=== PATIENT | female | born 1950 | race Caucasian/White ===

== ENCOUNTER 2019-09-16 13:56 | Observation (INO) | payer MEDICARE, OTHER ==
[2019-09-16] MEDS ORDERED: Sodium Chloride 0.9% 10 ML Syringe FLUSH PRN (14:19)
[2019-09-16] MEDS ORDERED: Sodium Chloride 0.9% 2.5 ML Syringe FLUSH PRN (14:19)
[2019-09-16] MEDS ORDERED: Sodium Chloride 0.9% 1,000 ML IV ONE (14:19)
--- NOTE | 2019-09-16 14:25 | EDM.PDOC ---
ED HPI GENERAL MEDICAL PROBLEM - General Chief Complaint: Cardiovascular Problem Stated Complaint: LOW BP Time Seen by Provider: 09/16/19 14:02 Source of Information: Reports: Patient History Limitations: Reports: No Limitations - History of Present Illness INITIAL COMMENTS - FREE TEXT/NARRATIVE: 69-year-old female with history of SC x2, stents, COPD, peripheral vascular disease, diabetes presents with hypotension and nausea. She was out in her backyard raking leaves and cleaning for about 1.5 hours before she felt nauseous. She then went inside and checked her blood pressure, she got multiple readings where her blood pressure was in the low 90s over 50s, the lowest one being 61/40. She denied chest pain, vomiting, diarrhea, abdominal pain, rectal bleeding, headache, focal numbness or weakness. She is currently not nauseous. She does admit to feeling tired and short of breath. She currently takes carvedilol 6.25 mg. ROS: A 10-point review of systems, other than pertinent positives and negatives as stated per HPI, is otherwise negative PHYSICAL EXAM General: AOx4, GCS = 15, No distress HEENT: dry mucous membrane Neck: supple, no meningismus, no Kernig or Brudzinski Cardiac: S1S2 RRR, +1 pedal edema Respiratory: CTAB, no crackles or rales, no wheezing Abdomen: Soft, nontender, no rebound or guarding, nondistended, no pulsatile mass. Back: nontender Musculoskeletal: NVI distally, no deformity Neuro: No focal deficits. MEDICAL DECISION MAKING: I reviewed the patients past medical records, lab and radiographic findings. I discussed the case with family members. My differential diagnosis included: Orthostatic hypotension, atypical chest pain. Patient's EKG today demonstrated T wave inversions in V1 to V3, I compared it to an old EKG, these are new changes from 2013. She did not demonstrate hypotension in the ER, she was given 1 L IV fluids. Her nausea was resolved in the ER. Patient did demonstrate acute kidney injury with creatinine = 2.0, BUN = 36, there are no old labs for comparison. Patient will need to be admitted to the hospital for telemetry monitoring and cardiac work-up and continue IV hydration. - Related Data Allergies Allergy/AdvReac Type Severity Reaction Status Date / Time egg Allergy Vomiting Verified 09/16/19 14:08 Iodinated Contrast Media Allergy Hives Verified 09/16/19 14:08 [Iodinated Contrast Media - IV Dye] morphine Allergy Bradycardia Verified 09/16/19 14:08 Sulfa (Sulfonamide Allergy Hives Verified 09/16/19 14:08 Antibiotics) Home Meds: Home Meds Armodafinil [Nuvigil] 250 mg PO DAILY 02/22/14 [History] Aspirin [Children's Aspirin] 81 mg PO DAILY 02/22/14 [History] Budesonide/Formoterol [Symbicort 80-4.5 MCG] 1 inhalation IH BID 02/22/14 [ History] Cholecalciferol (Vitamin D3) [Vitamin D3] 5,000 units PO ASDIRECTED 02/22/14 [ History] Clopidogrel Bisulfate [Clopidogrel] 75 mg PO DAILY 02/22/14 [History] Cyanocobalamin (Vitamin B12) [Vitamin B12] 1 tab PO DAILY 02/22/14 [History] Pramipexole Di-HCl [Pramipexole Dihydrochloride] 0.5 mg PO DAILY 02/22/14 [ History] Rosuvastatin [Crestor] 40 mg PO DAILY 02/22/14 [History] Sertraline HCl [Zoloft] 100 mg PO DAILY 02/22/14 [History] carvediloL [Carvedilol] 6.25 mg PO BID 02/22/14 [History] metFORMIN HCl [Metformin HCl] 750 mg PO BEDTIME 02/22/14 [History] ramipriL [Altace] 5 mg PO BID 02/22/14 [History] traMADol HCl [Ultram] 2 tab PO ASDIRECTED PRN 02/22/14 [History] Dulaglutide [Trulicity] 1.5 mg SQ WEEKLY 09/16/19 [History] Famotidine 40 mg PO DAILY 09/16/19 [History] ED ROS GENERAL - Review of Systems Review Of Systems: See Below (see dictation) ED EXAM, GENERAL - Physical Exam Exam: See Below (see dictation) EKG INTERPRETATION EKG Interpretation Comments: 54 Bpm, sinus bradycardia, normal QRS interval, no STEMI. TWi on V1-V3. EKG and rhythm strip interpreted by me at 1401 (new compared to 01/2014) Course - Vital Signs Last Recorded V/S: Last Vital Signs Temp 96 F L 09/16/19 14:01 Pulse 60 09/16/19 15:30 Resp 18 09/16/19 15:30 BP 104/51 L 09/16/19 15:30 Pulse Ox 94 L 09/16/19 15:30 Orthostatic Blood Pressure [ 108/62 Standing] Orthostatic Blood Pressure [ 114/52 Sitting] Orthostatic Blood Pressure [ 119/42 Supine] - Orders/Labs/Meds Orders: Active Orders 24 hr Category Date Time Status Cardiac Monitoring [RC] . DIRECTED Care 09/16/19 14:19 Active EKG Documentation Completion [RC] STAT Care 09/16/19 14:19 Active Orthostatic Vital Signs [RC] ASDIRECTED Care 09/16/19 14:48 Active Sodium Chloride 0.9% [Saline Flush] Med 09/16/19 14:19 Active 10 ml FLUSH ASDIRECTED PRN Sodium Chloride 0.9% [Saline Flush] Med 09/16/19 14:19 Active 2.5 ml FLUSH ASDIRECTED PRN Saline Lock Insert [OM.PC] Stat Oth 09/16/19 14:19 Ordered Medication Orders Sodium Chloride (Saline Flush) 10 ml FLUSH ASDIRECTED PRN PRN Reason: Keep Vein Open Last Admin: 09/16/19 14:52 Dose: 10 ml Sodium Chloride (Saline Flush) 2.5 ml FLUSH ASDIRECTED PRN PRN Reason: Keep Vein Open Last Admin: 09/16/19 14:53 Dose: 2.5 ml Labs: Laboratory Tests 09/16/19 09/16/19 09/16/19 Range/Units 14:35 14:35 14:35 WBC 4.01 (4.0-11.0) K/uL RBC 3.86 L (4.30-5.90) M/uL Hgb 11.3 L (12.0-16.0) g/dL Hct 36.2 (36.0-46.0) % MCV 93.8 (80.0-98.0) fL MCH 29.3 (27.0-32.0) pg MCHC 31.2 (31.0-37.0) g/dL RDW Std Deviation 43.7 (28.0-62.0) fl RDW Coeff of [place]qu[place] 13 (11.0-15.0) % Plt Count 182 (150-400) K/uL MPV 9.90 (7.40-12.00) fL Neut % (Auto) 57.4 (48.0-80.0) % Lymph % (Auto) 28.9 (16.0-40.0) % Carbon % (Auto) 8.5 (0.0-15.0) % Eos % (Auto) 5.0 (0.0-7.0) % Baso % (Auto) 0.2 (0.0-1.5) % Neut # (Auto) 2.3 (1.4-5.7) K/uL Lymph # (Auto) 1.2 (0.6-2.4) K/uL Carbon # (Auto) 0.3 (0.0-0.8) K/uL Eos # (Auto) 0.2 (0.0-0.7) K/uL Baso # (Auto) 0.0 (0.0-0.1) K/uL Nucleated RBC % 0.0 /100WBC Nucleated RBCs # 0 K/uL INR 1.01 Sodium 141 (136-145) mmol/L Potassium 4.7 (3.5-5.1) mmol/L Chloride 105 (98-107) mmol/L Carbon Dioxide 28.9 (21.0-32.0) mmol/L BUN 36 H (7.0-18.0) mg/dL Creatinine 2.0 H (0.6-1.0) mg/dL Est Cr Clr Drug Dosing 22.92 mL/min Estimated GFR (MDRD) 24.7 ml/min Glucose 95 (74-106) mg/dL Calcium 8.8 (8.5-10.1) mg/dL Total Bilirubin 0.3 (0.2-1.0) mg/dL AST 28 (15-37) IU/L ALT 23 (14-63) IU/L Alkaline Phosphatase 73 (46-116) U/L Troponin I < 0.050 (0.000-0.056) ng/mL Total Protein 6.9 (6.4-8.2) g/dL Albumin 4.0 (3.4-5.0) g/dL Globulin 2.9 (2.6-4.0) g/dL Albumin/Globulin Ratio 1.4 (0.9-1.6) Meds: Medications Generic Name Dose Route Start Last Admin Trade Name Freq PRN Reason Stop Dose Admin Sodium Chloride 10 ml 09/16/19 14:19 09/16/19 14:52 Saline Flush FLUSH 10 ml ASDIRECTED PRN Administration Keep Vein Open Sodium Chloride 2.5 ml 09/16/19 14:19 09/16/19 14:53 Saline Flush FLUSH 2.5 ml ASDIRECTED PRN Administration Keep Vein Open Discontinued Medications Generic Name Dose Route Start Last Admin Trade Name Freq PRN Reason Stop Dose Admin Sodium Chloride 1,000 mls @ 999 mls/hr 09/16/19 14:19 09/16/19 14:50 Normal Saline IV 09/16/19 15:19 999 mls/hr BOLUS ONE Administration - Re-Assessments/Exams Free Text/Narrative Re-Assessment/Exam: 09/16/19 16:[address] ARELLANO, who agrees to admit patient to Obs/tele. HIs documentation supersedes all other documentation on this patient with regard to any conflicts or discrepancies from this point forward. Any emergency conditions have been treated to the ability of the ED prior to admission. Departure - Departure Time of Disposition: 16:19 Disposition: Refer to Observation Condition: Good Clinical Impression: Bradycardia, Acute renal failure (ARF), Transient hypotension Sepsis Event Note - Evaluation Sepsis Screening Result: No Definite Risk - Focused Exam Vital Signs: Vital Signs Temp Pulse Resp BP Pulse Ox 09/16/19 15:30 60 18 104/51 L 94 L 09/16/19 15:02 58 L 16 118/58 L 95 09/16/19 14:01 96 F L 61 17 120/76 96 Date Exam was Performed: 09/16/19 Time Exam was Performed: 16:18 - My Orders Last 24 Hours: My Active Orders 09/16/19 14:19 Cardiac Monitoring [RC] . DIRECTED EKG Documentation Completion [RC] STAT Sodium Chloride 0.9% [Saline Flush] 10 ml FLUSH ASDIRECTED PRN Sodium Chloride 0.9% [Saline Flush] 2.5 ml FLUSH ASDIRECTED PRN Saline Lock Insert [OM.PC] Stat 09/16/19 14:48 Orthostatic Vital Signs [RC] ASDIRECTED - Assessment/Plan Last 24 Hours: My Active Orders 09/16/19 14:19 Cardiac Monitoring [RC] . DIRECTED EKG Documentation Completion [RC] STAT Sodium Chloride 0.9% [Saline Flush] 10 ml FLUSH ASDIRECTED PRN Sodium Chloride 0.9% [Saline Flush] 2.5 ml FLUSH ASDIRECTED PRN Saline Lock Insert [OM.PC] Stat 09/16/19 14:48 Orthostatic Vital Signs [RC] ASDIRECTED
--- NOTE | 2019-09-16 15:09 | CR ---
INDICATION: Hypotension TECHNIQUE: Single view chest. FINDINGS: The lungs are clear. The heart, mediastinum and pulmonary vessels are of normal size. There is no evidence of pleural disease. IMPRESSION: Negative chest. Dictated by Sherly Sherman MD @ Sep 16 2019 3:06PM Signed by Dr. Sherly Sherman @ Sep 16 2019 3:07PM
[2019-09-16 15:10] LABS: BLOOD UREA NITROGEN,BUN 36 mg/dL (7.0-18.0); CARBON DIOXIDE,CO2 28.9 mmol/L (21.0-32.0); CHLORIDE,CL 105 mmol/L (98-107); GLUCOSE RANDOM 95 mg/dL (74-106); POTASSIUM,K 4.7 mmol/L (3.5-5.1); SODIUM,NA 141 mmol/L (136-145)
[2019-09-16] MEDS ORDERED: traMADol 50 MG Tab PO PRN ×2 (19:20→19:26)
--- NOTE | 2019-09-16 19:39 | PCM.HP.2 ---
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 Patient reports she was working in her yard today when she felt off. She reported feeling nauseated. She took her blood pressure and noted it to be 60s-90s systolic on her BP machine. Patient denies any chest pain, shortness of breath or lightheadedness. She moved up here for the summer from [place] two weeks ago. In the ED she was noted to have BP in the 100-120 systolic. Lab work was significant for a creatinine of 2.0. PAtient reports she does have frequent lab checks and she has never been told she has kidney disease. - Related Data Allergies/Adverse Reactions: Allergies Allergy/AdvReac Type Severity Reaction Status Date / Time egg Allergy Vomiting Verified 09/16/19 17:11 Iodinated Contrast Media Allergy Hives Verified 09/16/19 17:11 [Iodinated Contrast Media - IV Dye] morphine Allergy Bradycardia Verified 09/16/19 17:11 Sulfa (Sulfonamide Allergy Hives Verified 09/16/19 17:11 Antibiotics) Home Medications: Home Meds Armodafinil [Nuvigil] 250 mg PO DAILY 02/22/14 [History] Aspirin [Children's Aspirin] 81 mg PO BEDTIME 02/22/14 [History] Budesonide/Formoterol [Symbicort 80-4.5 MCG] 1 inhalation IH BID 02/22/14 [ History] Cholecalciferol (Vitamin D3) [Vitamin D3] 5,000 units PO ASDIRECTED 02/22/14 [ History] Clopidogrel Bisulfate [Clopidogrel] 75 mg PO DAILY 02/22/14 [History] Cyanocobalamin (Vitamin B12) [Vitamin B12] 1 tab PO BEDTIME 02/22/14 [History] Pramipexole Di-HCl [Pramipexole Dihydrochloride] 0.5 mg PO BEDTIME 02/22/14 [ History] Rosuvastatin [Crestor] 40 mg PO BEDTIME 02/22/14 [History] Sertraline HCl [Zoloft] 100 mg PO BEDTIME 02/22/14 [History] carvediloL [Carvedilol] 6.25 mg PO BID 02/22/14 [History] metFORMIN HCl [Metformin HCl] 750 mg PO BEDTIME 02/22/14 [History] ramipriL [Altace] 5 mg PO BID 02/22/14 [History] traMADol HCl [Ultram] 2 tab PO ASDIRECTED PRN 02/22/14 [History] Dulaglutide [Trulicity] 1.5 mg SQ WEEKLY 09/16/19 [History] Famotidine 40 mg PO DAILY 09/16/19 [History] Past Medical History Cardiovascular History: Reports: High Cholesterol, Hypertension, DC Respiratory History: Reports: COPD, Sleep Apnea Gastrointestinal History: Reports: [employer] History: Reports: Musculoskeletal History: Reports: Arthritis Neurological History: Reports: None Psychiatric History: Reports: Anxiety, Depression Endocrine/Metabolic History: Reports: Other (See Below) Other Endocrine/Metabolic History: borderline diabetic Hematologic History: Reports: None Immunologic History: Reports: None Oncologic (Cancer) History: Reports: None Dermatologic History: Reports: None - Infectious Disease History Infectious Disease History: Reports: None - Past Surgical History Head Surgeries/Procedures: Reports: None HEENT Surgical History: Reports: Naso-Sinus Surgery Cardiovascular Surgical History: Reports: Other (See Below) Other Cardiovascular Surgeries/Procedures: stents GI Surgical History: Reports: Appendectomy, Cholecystectomy, Colonoscopy, Hernia , Abdominal Female Surgical History: Reports: Breast Reduction, Tubal Ligation Social & Family History - Tobacco Use Smoking Status *Q: Former Smoker Used Tobacco, but Quit: No Month/Year Tobacco Last Used: 2003 Second Hand Smoke Exposure: No - Caffeine Use Caffeine Use: Reports: Coffee - Recreational Drug Use Recreational Drug Use: No H&P Review of Systems - Review of Systems: Review Of Systems: Comprehensive ROS is negative, except as noted in HPI. Exam - Exam Exam: See Below - Vital Signs Vital Signs: Last Vital Signs Temp 36.2 C 09/16/19 17:10 Pulse 95 09/16/19 17:10 Resp 17 09/16/19 17:10 BP 124/58 L 09/16/19 17:10 Pulse Ox 95 09/16/19 17:10 Orthostatic Blood Pressure [ 108/62 Standing] Orthostatic Blood Pressure [ 114/52 Sitting] Orthostatic Blood Pressure [ 119/42 Supine] Weight: 82.3 kg - Exam General: Alert, Oriented HEENT: Mucosa Moist & [place] Lungs: Clear to Auscultation, Normal Respiratory Effort Cardiovascular: Regular Rate, Regular Rhythm GI/Abdominal Exam: Normal Bowel Sounds, Soft, Non-Tender Extremities: Non-Tender, No Pedal Edema Skin: Warm, Dry, Intact - Patient Data Lab Results Last 24 hrs: Laboratory Results - last 24 hr 09/16/19 09/16/19 09/16/19 Range/Units 14:35 14:35 14:35 WBC 4.01 (4.0-11.0) K/uL RBC 3.86 L (4.30-5.90) M/uL Hgb 11.3 L (12.0-16.0) g/dL Hct 36.2 (36.0-46.0) % MCV 93.8 (80.0-98.0) fL MCH 29.3 (27.0-32.0) pg MCHC 31.2 (31.0-37.0) g/dL RDW Std Deviation 43.7 (28.0-62.0) fl RDW Coeff of Orquidea 13 (11.0-15.0) % Plt Count 182 (150-400) K/uL MPV 9.90 (7.40-12.00) fL Neut % (Auto) 57.4 (48.0-80.0) % Lymph % (Auto) 28.9 (16.0-40.0) % [place] % (Auto) 8.5 (0.0-15.0) % Eos % (Auto) 5.0 (0.0-7.0) % Baso % (Auto) 0.2 (0.0-1.5) % Neut # (Auto) 2.3 (1.4-5.7) K/uL Lymph # (Auto) 1.2 (0.6-2.4) K/uL [place] # (Auto) 0.3 (0.0-0.8) K/uL Eos # (Auto) 0.2 (0.0-0.7) K/uL Baso # (Auto) 0.0 (0.0-0.1) K/uL Nucleated RBC % 0.0 /100WBC Nucleated RBCs # 0 K/uL INR 1.01 Sodium 141 (136-145) mmol/L Potassium 4.7 (3.5-5.1) mmol/L Chloride 105 (98-107) mmol/L Carbon Dioxide 28.9 (21.0-32.0) mmol/L BUN 36 H (7.0-18.0) mg/dL Creatinine 2.0 H (0.6-1.0) mg/dL Est Cr Clr Drug Dosing 22.92 mL/min Estimated GFR (MDRD) 24.7 ml/min Glucose 95 (74-106) mg/dL Calcium 8.8 (8.5-10.1) mg/dL Total Bilirubin 0.3 (0.2-1.0) mg/dL AST 28 (15-37) IU/L ALT 23 (14-63) IU/L Alkaline Phosphatase 73 (46-116) U/L Troponin I < 0.050 (0.000-0.056) ng/mL Total Protein 6.9 (6.4-8.2) g/dL Albumin 4.0 (3.4-5.0) g/dL Globulin 2.9 (2.6-4.0) g/dL Albumin/Globulin Ratio 1.4 (0.9-1.6) Result Diagrams: 09/16/19 14:35 09/16/19 14:35 Sepsis Event Note - Evaluation Sepsis Screening Result: No Definite Risk - Focused Exam Vital Signs: Vital Signs Temp Pulse Resp BP Pulse Ox 09/16/19 17:10 36.2 C 95 17 124/58 L 95 09/16/19 15:30 60 18 104/51 L 94 L 09/16/19 15:02 58 L 16 118/58 L 95 09/16/19 14:01 35.5 C L 61 17 120/76 96 Date Exam was Performed: 09/16/19 Time Exam was Performed: 19:34 Problem List Initiated/Reviewed/Updated: Yes Orders Last 24hrs: Active Orders 24 hr Category Date Time Status Admission Status [Patient Status] [ADT] Stat ADT 09/16/19 16:23 Active Antiembolic Devices [RC] PER UNIT ROUTINE Care 09/16/19 16:54 Active Blood Glucose Check, Bedside [RC] TIDAC Care 09/17/19 06:00 Active Communication Order [RC] ROUTINE Care 09/16/19 19:33 Ordered Oxygen Therapy [RC] PRN Care 09/16/19 19:32 Ordered Telemetry Monitoring [Cardiac Monitoring] [RC] . Care 09/16/19 16:50 Active DIRECTED Up ad [place] [RC] ASDIRECTED Care 09/16/19 19:32 Ordered VTE/DVT Education [RC] PER UNIT ROUTINE Care 09/16/19 19:32 Ordered Vital Signs [RC] Q4H Care 09/16/19 19:32 Ordered ADA Diabetic [[place] [employer] Diet] [DIET Diet 09/16/19 Dinner Active ] BASIC METABOLIC PANEL,BMP [CHEM] AM Lab 09/17/19 05:11 Ordered CBC WITH AUTO DIFF [HEME] AM Lab 09/17/19 05:11 Ordered TROPONIN I [CHEM] Routine Lab 09/16/19 19:30 Ordered TROPONIN I [CHEM] Timed Lab 09/17/19 01:30 Ordered UA W/MARIS RFLX IF INDICATED [URIN] Routine Lab 09/16/19 19:33 Ordered Armodafinil [Nuvigil] Med 09/17/19 09:00 Ordered 250 mg PO DAILY Budesonide/Formoterol [Symbicort 80-4.5 MCG] Med 09/16/19 21:00 Ordered 1 inhalation IH BID Clopidogrel [Plavix] Med 09/17/19 09:00 Ordered 75 mg PO DAILY Famotidine [Famotidine] Med 09/17/19 09:00 Ordered 40 mg PO DAILY Insulin Aspart [NovoLOG] Med 09/17/19 07:30 Active See Protocol SUBCUT TIDAC Pramipexole Med 09/16/19 21:00 Ordered 0.5 mg PO BEDTIME Rosuvastatin [Crestor] Med 09/16/19 21:00 Ordered 40 mg PO BEDTIME Sertraline [Zoloft] Med 09/16/19 21:00 Ordered 100 mg PO BEDTIME Sodium Chloride 0.9% [Saline Flush] Med 09/16/19 14:19 Active 10 ml FLUSH ASDIRECTED PRN Sodium Chloride 0.9% [Saline Flush] Med 09/16/19 14:19 Active 2.5 ml FLUSH ASDIRECTED PRN carvediloL [Coreg] Med 09/16/19 21:00 Ordered 6.25 mg PO BID Saline Lock Insert [OM.PC] Stat Oth 09/16/19 14:19 Ordered Sequential Compression Device [OM.PC] Routine Oth 09/16/19 16:54 Ordered Resuscitation Status Routine Resus Stat 09/16/19 19:32 Ordered Medication Orders Carvedilol (Coreg) 6.25 mg PO BID HECTOR Clopidogrel Bisulfate (Plavix) 75 mg PO DAILY HECTOR Insulin Aspart (Novolog) 0 unit SUBCUT TIDAC HECTOR; Protocol Non-Formulary Medication (Armodafinil [Nuvigil]) 250 mg PO DAILY HECTOR Non-Formulary Medication (Budesonide/Formoterol [Symbicort 80-4.5 Mcg]) 1 inhalation IH BID HECTOR Non-Formulary Medication (Famotidine [Famotidine]) 40 mg PO DAILY HECTOR Non-Formulary Medication (Pramipexole) 0.5 mg PO BEDTIME HECTOR Non-Formulary Medication (Rosuvastatin [Crestor]) 40 mg PO BEDTIME HECTOR Sertraline HCl (Zoloft) 100 mg PO BEDTIME HECTOR Sodium Chloride (Saline Flush) 10 ml FLUSH ASDIRECTED PRN PRN Reason: Keep Vein Open Last Admin: 09/16/19 14:52 Dose: 10 ml Sodium Chloride (Saline Flush) 2.5 ml FLUSH ASDIRECTED PRN PRN Reason: Keep Vein Open Last Admin: 09/16/19 14:53 Dose: 2.5 ml Assessment/Plan Comment:: 69 yo female admitted for cute coronary syndrome rule out and suspect acute kidney disease from dehydration. a We will hold her ramipril and tramadol for tonight. We will hydrate with IV fluids and recheck BMP in the morning. UA is pending. We will monitor her telemetry and trend cardiac enzymes. Patient will bring her BP machine in so that we can compare readings to ours.
[2019-09-16] MEDS: Carvedilol 6.25 MG Tab PO SCH (20:39)
[2019-09-16] MEDS ORDERED: Sertraline 100 MG Tab PO SCH (21:00)
[2019-09-16] MEDS ORDERED: Rosuvastatin 10 MG Tab PO SCH (21:00)
[2019-09-16] MEDS ORDERED: Pramipexole 0.25 MG Tab PO SCH (21:00)
[2019-09-16] MEDS: Sodium Chloride 0.9% 1,000 ML IV SCH (21:31)
[2019-09-17 01:54] LABS: HEMOGLOBIN A1C 5.9 % (4.5-6.2)
[2019-09-17 01:58] LABS: CARBON DIOXIDE,CO2 24.9 mmol/L (21.0-32.0); POTASSIUM,K 4.4 mmol/L (3.5-5.1)
[2019-09-17] MEDS: Sodium Chloride 0.9% 1,000 ML IV SCH (05:47)
[2019-09-17] MEDS: FORMOTEROL INH SCH ×3 (07:47→09:42)
[2019-09-17] MEDS: BUDESONIDE INH SCH ×3 (07:47→09:42)
[2019-09-17] MEDS ORDERED: cefTRIAXone 1 GM in Premix Bag 1 BAG IV SCH (08:00)
[2019-09-17] MEDS: Insulin Aspart 100 Units/ML 3 ML Pen SUBCUT SCH ×2 (08:19→13:41)
[2019-09-17] MEDS: Carvedilol 6.25 MG Tab PO SCH (08:53)
[2019-09-17] MEDS ORDERED: Famotidine 20 MG Tab PO SCH (09:00)
[2019-09-17] MEDS ORDERED: Clopidogrel 75 MG Tab PO SCH (09:00)
[2019-09-17] MEDS ORDERED: traMADol 50 MG Tab PO ONE (10:50)
[2019-09-17 12:14] VITALS: BP 132/60; PULSE 86
--- NOTE | 2019-09-17 12:24 | PCM.DCSUM1 ---
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 Patient reports she was working in her yard today when she felt off. She reported feeling nauseated. She took her blood pressure and noted it to be 60s-90s systolic on her BP machine. Patient denies any chest pain, shortness of breath or lightheadedness. She moved up here for the summer from [place] two weeks ago. In the ED she was noted to have BP in the 100-120 systolic. Lab work was significant for a creatinine of 2.0. PAtient reports she does have frequent lab checks and she has never been told she has kidney disease. Diagnosis: Stroke: No - Discharge Data Discharge Date: 09/17/19 Discharge Disposition: Home, Home Health Agency 06 Condition: Good - Referral to Home Health Date of Face to Face Encounter: 09/17/19 Reason for Homebound Status: She is unable to drive to appointments, needing assistance from family or significant other. Primary Care Physician: Dr Albright Skilled Need: Skilled need by nursing to monitor blood pressures at home and evaluate medications. - Discharge Diagnosis/Problem(s) (1) Acute renal failure (ARF) SNOMED Code(s): 53363494 ICD Code: N17.9 - ACUTE KIDNEY FAILURE, UNSPECIFIED Status: Acute (2) Transient hypotension SNOMED Code(s): 75473715241071 ICD Code: I95.9 - HYPOTENSION, UNSPECIFIED Status: Acute - Patient Summary/Data Hospital Course: Admitting diagnoses: Hypotension AKBAR Discharge diagnoses: Hypotension- resolved AKBAR- improved UTI Other PMH: JUAN JOSÉ CAD pre DM COPD Marcy was admitted secondary to hypotension, bp soft but low on admission. Given some IVFs with improvement along with holding Ramipril. AKBAR noted on admission as well, this also improved with IVFs. Today BUN 28 and Cr 1.5 down from 36 and 2.0 respectively. She was also noted to have UTI, recieved 1 dose of Rocephin IV this morning. She was very eager to go home today. UC pending. She was instructed to stay hydrate with 2 L of fluid daily. BP remained softer with Coreg continued. We held Ramipril for now and will have this re examined by PCP in 1 week when she has repeat labwork as well. She will be discharged home on Keflex 500 mg TID x 5 days for UTI, will follow on UC. She is to return to ED or clinic if concerns should arise. - Patient Instructions Diet: Heart Healthy Diet Activity: As Tolerated, No Strenuous Activities Showering/Bathing: May Shower Notify Provider of: Fever, Increased Pain, Swelling and Redness, Drainage, Nausea and/or Vomiting Other/Special Instructions: Monitor Blood pressure prior to taking meds. If less than 110 on top, hold until next dose. Bring log to primary care follow up. labwork prior to next appointment. Urine culture results still pending, if antibiotics needs to change we will notify you. If no contact than antibiotic will cover urinary tract infection appropriately. - Discharge Plan *PRESCRIPTION DRUG MONITORING PROGRAM REVIEWED*: Not Applicable *COPY OF PRESCRIPTION DRUG MONITORING REPORT IN PATIENT MARY: Not Applicable Prescriptions/Med Rec: cephALEXin [Keflex] 500 mg PO Q8H #15 cap Home Medications: Home Meds Armodafinil [Nuvigil] 250 mg PO DAILY 02/22/14 [History] Aspirin [Children's Aspirin] 81 mg PO BEDTIME 02/22/14 [History] Cholecalciferol (Vitamin D3) [Vitamin D3] 5,000 units PO ASDIRECTED 02/22/14 [ History] Clopidogrel Bisulfate [Clopidogrel] 75 mg PO DAILY 02/22/14 [History] Cyanocobalamin (Vitamin B12) [Vitamin B12] 1 tab PO BEDTIME 02/22/14 [History] Pramipexole Di-HCl [Pramipexole Dihydrochloride] 0.5 mg PO BEDTIME 02/22/14 [ History] Rosuvastatin [Crestor] 40 mg PO BEDTIME 02/22/14 [History] Sertraline HCl [Zoloft] 100 mg PO BEDTIME 02/22/14 [History] carvediloL [Carvedilol] 6.25 mg PO BID 02/22/14 [History] metFORMIN HCl [Metformin HCl] 750 mg PO BEDTIME 02/22/14 [History] traMADol HCl [Ultram] 2 tab PO ASDIRECTED PRN 02/22/14 [History] Dulaglutide [Trulicity] 1.5 mg SQ WEEKLY 09/16/19 [History] Famotidine 40 mg PO DAILY 09/16/19 [History] Budesonide/Formoterol [Symbicort 160-4.5 MCG] 0 gm INH BID inhaler 09/17/19 [Rx ] Budesonide/Formoterol [Symbicort 160-4.5 MCG] 2 puff INH BID 09/17/19 [History] cephALEXin [Keflex] 500 mg PO Q8H #15 cap 09/17/19 [Rx] Oxygen Therapy Mode: Room Air Patient Handouts: Acute Kidney Injury, Adult, Hypotension, [id number], Cephalexin tablets or capsules Referrals: Alireza Albright MD [Ordering Only Provider] - 09/25/19 9:45 am (Arrive 15 minutes early with a photo ID and insurance card. If you do not arrive early, they will not see you. ) - Discharge Summary/Plan Comment DC Time >30 min.: No - Patient Data Vitals - Most Recent: Last Vital Signs Temp 97.7 F 09/17/19 12:00 Pulse 86 09/17/19 12:00 Resp 14 09/17/19 12:00 BP 132/60 09/17/19 12:00 Pulse Ox 97 09/17/19 12:00 Orthostatic Blood Pressure [ 108/62 Standing] Orthostatic Blood Pressure [ 114/52 Sitting] Orthostatic Blood Pressure [ 119/42 Supine] Weight - Most Recent: 82.3 kg I&O - Last 24 hours: Intake & Output 09/16/19 09/17/19 09/17/19 22:59 06:59 14:59 Intake Total 2150 Output Total 1000 Balance 1150 Lab Results - Last 24 hrs: Laboratory Results - last 24 hr 09/16/19 09/16/19 09/16/19 Range/Units 14:35 14:35 14:35 WBC 4.01 (4.0-11.0) K/uL RBC 3.86 L (4.30-5.90) M/uL Hgb 11.3 L (12.0-16.0) g/dL Hct 36.2 (36.0-46.0) % MCV 93.8 (80.0-98.0) fL MCH 29.3 (27.0-32.0) pg MCHC 31.2 (31.0-37.0) g/dL RDW Std Deviation 43.7 (28.0-62.0) fl RDW Coeff of [place] 13 (11.0-15.0) % Plt Count 182 (150-400) K/uL MPV 9.90 (7.40-12.00) fL Neut % (Auto) 57.4 (48.0-80.0) % Lymph % (Auto) 28.9 (16.0-40.0) % [place] % (Auto) 8.5 (0.0-15.0) % Eos % (Auto) 5.0 (0.0-7.0) % Baso % (Auto) 0.2 (0.0-1.5) % Neut # (Auto) 2.3 (1.4-5.7) K/uL Lymph # (Auto) 1.2 (0.6-2.4) K/uL [place] # (Auto) 0.3 (0.0-0.8) K/uL Eos # (Auto) 0.2 (0.0-0.7) K/uL Baso # (Auto) 0.0 (0.0-0.1) K/uL Nucleated RBC % 0.0 /100WBC Nucleated RBCs # 0 K/uL INR 1.01 Sodium 141 (136-145) mmol/L Potassium 4.7 (3.5-5.1) mmol/L Chloride 105 (98-107) mmol/L Carbon Dioxide 28.9 (21.0-32.0) mmol/L BUN 36 H (7.0-18.0) mg/dL Creatinine 2.0 H (0.6-1.0) mg/dL Est Cr Clr Drug Dosing 22.92 mL/min Estimated GFR (MDRD) 24.7 ml/min Glucose 95 (74-106) mg/dL POC Glucose (60-110) mg/dL Hemoglobin A1c (4.5-6.2) % Calcium 8.8 (8.5-10.1) mg/dL Total Bilirubin 0.3 (0.2-1.0) mg/dL AST 28 (15-37) IU/L ALT 23 (14-63) IU/L Alkaline Phosphatase 73 (46-116) U/L Troponin I < 0.050 (0.000-0.056) ng/mL Total Protein 6.9 (6.4-8.2) g/dL Albumin 4.0 (3.4-5.0) g/dL Globulin 2.9 (2.6-4.0) g/dL Albumin/Globulin Ratio 1.4 (0.9-1.6) Urine Color Urine Appearance Urine pH (5.0-8.0) Ur Specific [place] (1.001-1.035) Urine Protein (NEGATIVE) mg/dL Urine Glucose (UA) (NEGATIVE) mg/dL Urine Ketones (NEGATIVE) mg/dL Urine Occult Blood (NEGATIVE) Urine Nitrite (NEGATIVE) Urine Bilirubin (NEGATIVE) Urine Urobilinogen (<2.0) EU/dL Ur Leukocyte Esterase (NEGATIVE) U Hyaline Cast (Auto) (0-2/LPF) Urine RBC (0-2/HPF) Urine WBC (0-5/HPF) Ur Epithelial Cells (NONE-FEW) Urine Bacteria (NEGATIVE) 09/16/19 09/16/19 09/17/19 Range/Units 19:37 21:30 01:39 WBC (4.0-11.0) K/uL RBC (4.30-5.90) M/uL Hgb (12.0-16.0) g/dL Hct (36.0-46.0) % MCV (80.0-98.0) fL MCH (27.0-32.0) pg MCHC (31.0-37.0) g/dL RDW Std Deviation (28.0-62.0) fl RDW Coeff of [place] (11.0-15.0) % Plt Count (150-400) K/uL MPV (7.40-12.00) fL Neut % (Auto) (48.0-80.0) % Lymph % (Auto) (16.0-40.0) % [place] % (Auto) (0.0-15.0) % Eos % (Auto) (0.0-7.0) % Baso % (Auto) (0.0-1.5) % Neut # (Auto) (1.4-5.7) K/uL Lymph # (Auto) (0.6-2.4) K/uL [place] # (Auto) (0.0-0.8) K/uL Eos # (Auto) (0.0-0.7) K/uL Baso # (Auto) (0.0-0.1) K/uL Nucleated RBC % /100WBC Nucleated RBCs # K/uL INR Sodium (136-145) mmol/L Potassium (3.5-5.1) mmol/L Chloride (98-107) mmol/L Carbon Dioxide (21.0-32.0) mmol/L BUN (7.0-18.0) mg/dL Creatinine (0.6-1.0) mg/dL Est Cr Clr Drug Dosing mL/min Estimated GFR (MDRD) ml/min Glucose (74-106) mg/dL POC Glucose (60-110) mg/dL Hemoglobin A1c (4.5-6.2) % Calcium (8.5-10.1) mg/dL Total Bilirubin (0.2-1.0) mg/dL AST (15-37) IU/L ALT (14-63) IU/L Alkaline Phosphatase (46-116) U/L Troponin I < 0.050 < 0.050 (0.000-0.056) ng/mL Total Protein (6.4-8.2) g/dL Albumin (3.4-5.0) g/dL Globulin (2.6-4.0) g/dL Albumin/Globulin Ratio (0.9-1.6) Urine Color YELLOW Urine Appearance SLT CLOUDY Urine pH 6.0 (5.0-8.0) Ur Specific [place] 1.020 (1.001-1.035) Urine Protein NEGATIVE (NEGATIVE) mg/dL Urine Glucose (UA) NEGATIVE (NEGATIVE) mg/dL Urine Ketones NEGATIVE (NEGATIVE) mg/dL Urine Occult Blood NEGATIVE (NEGATIVE) Urine Nitrite POSITIVE H (NEGATIVE) Urine Bilirubin NEGATIVE (NEGATIVE) Urine Urobilinogen 0.2 (<2.0) EU/dL Ur Leukocyte Esterase MODERATE H (NEGATIVE) U Hyaline Cast (Auto) 1-2 (0-2/LPF) Urine RBC 0-2 (0-2/HPF) Urine WBC 5-9 (0-5/HPF) Ur Epithelial Cells MODERATE (NONE-FEW) Urine Bacteria 4+ H (NEGATIVE) 09/17/19 09/17/19 09/17/19 Range/Units 01:39 01:39 01:39 WBC 5.31 (4.0-11.0) K/uL RBC 3.57 L (4.30-5.90) M/uL Hgb 10.6 L (12.0-16.0) g/dL Hct 33.3 L (36.0-46.0) % MCV 93.3 (80.0-98.0) fL MCH 29.7 (27.0-32.0) pg MCHC 31.8 (31.0-37.0) g/dL RDW Std Deviation 43.7 (28.0-62.0) fl RDW Coeff of [place] 13 (11.0-15.0) % Plt Count 229 (150-400) K/uL MPV 9.70 (7.40-12.00) fL Neut % (Auto) 54.2 (48.0-80.0) % Lymph % (Auto) 33.7 (16.0-40.0) % [place] % (Auto) 8.3 (0.0-15.0) % Eos % (Auto) 3.4 (0.0-7.0) % Baso % (Auto) 0.4 (0.0-1.5) % Neut # (Auto) 2.9 (1.4-5.7) K/uL Lymph # (Auto) 1.8 (0.6-2.4) K/uL [place] # (Auto) 0.4 (0.0-0.8) K/uL Eos # (Auto) 0.2 (0.0-0.7) K/uL Baso # (Auto) 0.0 (0.0-0.1) K/uL Nucleated RBC % 0.0 /100WBC Nucleated RBCs # 0 K/uL INR Sodium 144 (136-145) mmol/L Potassium 4.4 (3.5-5.1) mmol/L Chloride 108 H (98-107) mmol/L Carbon Dioxide 24.9 (21.0-32.0) mmol/L BUN 28 H (7.0-18.0) mg/dL Creatinine 1.5 H (0.6-1.0) mg/dL Est Cr Clr Drug Dosing 30.57 mL/min Estimated GFR (MDRD) 34.4 ml/min Glucose 99 (74-106) mg/dL POC Glucose (60-110) mg/dL Hemoglobin A1c 5.9 (4.5-6.2) % Calcium 9.2 (8.5-10.1) mg/dL Total Bilirubin (0.2-1.0) mg/dL AST (15-37) IU/L ALT (14-63) IU/L Alkaline Phosphatase (46-116) U/L Troponin I (0.000-0.056) ng/mL Total Protein (6.4-8.2) g/dL Albumin (3.4-5.0) g/dL Globulin (2.6-4.0) g/dL Albumin/Globulin Ratio (0.9-1.6) Urine Color Urine Appearance Urine pH (5.0-8.0) Ur Specific [place] (1.001-1.035) Urine Protein (NEGATIVE) mg/dL Urine Glucose (UA) (NEGATIVE) mg/dL Urine Ketones (NEGATIVE) mg/dL Urine Occult Blood (NEGATIVE) Urine Nitrite (NEGATIVE) Urine Bilirubin (NEGATIVE) Urine Urobilinogen (<2.0) EU/dL Ur Leukocyte Esterase (NEGATIVE) U Hyaline Cast (Auto) (0-2/LPF) Urine RBC (0-2/HPF) Urine WBC (0-5/HPF) Ur Epithelial Cells (NONE-FEW) Urine Bacteria (NEGATIVE) 09/17/19 09/17/19 Range/Units 07:28 12:07 WBC (4.0-11.0) K/uL RBC (4.30-5.90) M/uL Hgb (12.0-16.0) g/dL Hct (36.0-46.0) % MCV (80.0-98.0) fL MCH (27.0-32.0) pg MCHC (31.0-37.0) g/dL RDW Std Deviation (28.0-62.0) fl RDW Coeff of [place] (11.0-15.0) % Plt Count (150-400) K/uL MPV (7.40-12.00) fL Neut % (Auto) (48.0-80.0) % Lymph % (Auto) (16.0-40.0) % [place] % (Auto) (0.0-15.0) % Eos % (Auto) (0.0-7.0) % Baso % (Auto) (0.0-1.5) % Neut # (Auto) (1.4-5.7) K/uL Lymph # (Auto) (0.6-2.4) K/uL [place] # (Auto) (0.0-0.8) K/uL Eos # (Auto) (0.0-0.7) K/uL Baso # (Auto) (0.0-0.1) K/uL Nucleated RBC % /100WBC Nucleated RBCs # K/uL INR Sodium (136-145) mmol/L Potassium (3.5-5.1) mmol/L Chloride (98-107) mmol/L Carbon Dioxide (21.0-32.0) mmol/L BUN (7.0-18.0) mg/dL Creatinine (0.6-1.0) mg/dL Est Cr Clr Drug Dosing mL/min Estimated GFR (MDRD) ml/min Glucose (74-106) mg/dL POC Glucose 90 100 (60-110) mg/dL Hemoglobin A1c (4.5-6.2) % Calcium (8.5-10.1) mg/dL Total Bilirubin (0.2-1.0) mg/dL AST (15-37) IU/L ALT (14-63) IU/L Alkaline Phosphatase (46-116) U/L Troponin I (0.000-0.056) ng/mL Total Protein (6.4-8.2) g/dL Albumin (3.4-5.0) g/dL Globulin (2.6-4.0) g/dL Albumin/Globulin Ratio (0.9-1.6) Urine Color Urine Appearance Urine pH (5.0-8.0) Ur Specific [place] (1.001-1.035) Urine Protein (NEGATIVE) mg/dL Urine Glucose (UA) (NEGATIVE) mg/dL Urine Ketones (NEGATIVE) mg/dL Urine Occult Blood (NEGATIVE) Urine Nitrite (NEGATIVE) Urine Bilirubin (NEGATIVE) Urine Urobilinogen (<2.0) EU/dL Ur Leukocyte Esterase (NEGATIVE) U Hyaline Cast (Auto) (0-2/LPF) Urine RBC (0-2/HPF) Urine WBC (0-5/HPF) Ur Epithelial Cells (NONE-FEW) Urine Bacteria (NEGATIVE) Med Orders - Current: Current Medications Budesonide/Formoterol Fumarate (Symbicort 160-4.5 Mcg) 0 gm INH BID [facility] Carvedilol (Coreg) 6.25 mg PO BIDMEALS [facility] Last Admin: 09/17/19 08:53 Dose: 6.25 mg Clopidogrel Bisulfate (Plavix) 75 mg PO DAILY [facility] Last Admin: 09/17/19 09:04 Dose: 75 mg Famotidine (Pepcid) 40 mg PO DAILY [facility] Last Admin: 09/17/19 09:03 Dose: 40 mg Sodium Chloride (Normal Saline) 1,000 mls @ 125 mls/hr IV ASDIRECTED [facility] Last Admin: 09/17/19 05:47 Dose: 125 mls/hr Ceftriaxone Sodium/Dextrose 1 (gm/ Premix) 50 mls @ 100 mls/hr IV Q24H [facility] Last Admin: 09/17/19 08:57 Dose: 100 mls/hr Insulin Aspart (Novolog) 0 unit SUBCUT TIDAC [facility]; Protocol Last Admin: 09/17/19 08:19 Dose: Not Given Armodafinil [Nuvigil (] 250mg) 1 each PO DAILY [facility] Last Admin: 09/17/19 09:05 Dose: Not Given Pramipexole Dihydrochloride (Mirapex) 0.5 mg PO BEDTIME [facility] Last Admin: 09/16/19 20:46 Dose: 0.5 mg Rosuvastatin Calcium (Crestor) 40 mg PO BEDTIME [facility] Last Admin: 09/16/19 20:42 Dose: 40 mg Sertraline HCl (Zoloft) 100 mg PO BEDTIME [facility] Last Admin: 09/16/19 20:44 Dose: 100 mg Sodium Chloride (Saline Flush) 10 ml FLUSH ASDIRECTED PRN PRN Reason: Keep Vein Open Last Admin: 09/16/19 14:52 Dose: 10 ml Sodium Chloride (Saline Flush) 2.5 ml FLUSH ASDIRECTED PRN PRN Reason: Keep Vein Open Last Admin: 09/16/19 14:53 Dose: 2.5 ml Discontinued Medications Sodium Chloride (Normal Saline) 1,000 mls @ 999 mls/hr IV BOLUS ONE Stop: 09/16/19 15:19 Last Admin: 09/16/19 14:50 Dose: 999 mls/hr Budesonide/Formoterol [ Symbicort] 80-4.5mcg 1 each INH BID [facility] Last Admin: 09/17/19 09:42 Dose: Not Given Tramadol HCl (Ultram) 150 mg PO Q12H PRN PRN Reason: Pain Tramadol HCl (Ultram) 50 mg PO Q12H PRN PRN Reason: Pain Tramadol HCl (Ultram) 100 mg PO ONETIME ONE Stop: 09/17/19 10:51 Last Admin: 09/17/19 11:26 Dose: 100 mg - Exam General: Reports: Alert, Oriented, Cooperative Lungs: Reports: Clear to Auscultation, Normal Respiratory Effort Cardiovascular: Reports: Regular Rate, Regular Rhythm GI/Abdominal Exam: Normal Bowel Sounds, Soft, Non-Tender Extremities: Normal Inspection, Normal Range of Motion Neurological: Reports: No New Focal Deficit Psy/Mental Status: Reports: Normal Affect, Normal Mood
[2019-09-17] MEDS ORDERED: FORMOTEROL INH SCH (21:00)
[2019-09-17] MEDS ORDERED: BUDESONIDE INH SCH (21:00)
== END 2019-09-17 12:55 | disposition home health service (06) ==
LOC: MW.ED 13:56 → MW.MS 16:23
PROVIDERS: ADMIT Internal Medicine; ATTEND Internal Medicine
DX: I95.89 Other hypotension (principal); N17.9 Acute kidney failure, unspecified; N39.0 Urinary tract infection, site not specified; E11.51 Type 2 diabetes mellitus with diabetic peripheral angiopathy without gangrene; J44.9 Chronic obstructive pulmonary disease, unspecified; I10 Essential (primary) hypertension; E78.00 Pure hypercholesterolemia, unspecified; F41.9 Anxiety disorder, unspecified; F32.9 Major depressive disorder, single episode, unspecified; G47.33 Obstructive sleep apnea (adult) (pediatric); I25.10 Atherosclerotic heart disease of native coronary artery without angina pectoris; Z88.5 Allergy status to narcotic agent; Z87.891 Personal history of nicotine dependence; Z88.2 Allergy status to sulfonamides; Z91.012 Allergy to eggs; Z91.041 Radiographic dye allergy status; Z79.82 Long term (current) use of aspirin; Z79.899 Other long term (current) drug therapy; Z79.84 Long term (current) use of oral hypoglycemic drugs; Z79.51 Long term (current) use of inhaled steroids; Z95.5 Presence of coronary angioplasty implant and graft
CPT/HCPCS: 36415; 71045; 80048; 80053; 81001; 82962; 83036; 84484; 85025; 85610; 87086; 87088; 87186; 93005; 96361; 96365; 99285; A9270; G0378; J0696; J7030; 96360

== ENCOUNTER 2021-03-18 07:59 | Day surgery (SDC) | payer MEDICARE, OTHER ==
--- NOTE | 2021-03-18 07:32 | PCM.PREANE ---
Preanesthetic Assessment - Anesthesia/Transfusion/Family Hx Anesthesia History: Prior Anesthesia Without Reaction Other Type of Anesthesia Reaction Comment: DENIES ANY PROBLEMS WITH ANESTHESIA Transfusion History: No Prior Transfusion(s) - Review of Systems General: No Symptoms Pulmonary: Shortness of Breath, Cough Cardiovascular: Palpitations, Dyspnea on Exertion Gastrointestinal: Abdominal Pain Neurological: No Symptoms Other: Reports: Easy Bleeding - Physical Assessment NPO Status Date: 03/18/21 NPO Status Time: 00:00 Height: 5 ft 4 in Weight: 183 lb ASA Class: 3 Mental Status: Alert & Oriented x3 Airway Class: Mallampati = 2 Dentition: Reports: Normal Dentition ROM/Head Extension: Full Lungs: Clear to Auscultation, Normal Respiratory Effort Cardiovascular: Regular Rate, Regular Rhythm - Allergies Allergies/Adverse Reactions: Allergies Allergy/AdvReac Type Severity Reaction Status Date / Time egg Allergy Vomiting Verified 03/12/21 08:34 Iodinated Contrast Media Allergy Hives Verified 03/12/21 08:34 [Iodinated Contrast Media - IV Dye] morphine Allergy Bradycardia Verified 03/12/21 08:34 Sulfa (Sulfonamide Allergy Hives Verified 03/12/21 08:34 Antibiotics) - Acknowledgements Anesthesia Type Planned: General Anesthesia Pt an Appropriate Candidate for the Planned Anesthesia: Yes Alternatives and Risks of Anesthesia Discussed w Pt/Guardian: Yes Pt/Guardian Understands and Agrees with Anesthesia Plan: Yes PreAnesthesia Questionnaire HEENT History: Reports: Cataract Other HEENT History: wears glasses Cardiovascular History: Reports: Blood Clots/VTE/DVT, High Cholesterol, Hypertension, CT Other Cardiovascular History: states had blood clot to her left leg-above the knee, when she was 19 years old Respiratory History: Reports: COPD, Sleep Apnea Other Respiratory History: uses CPAP Gastrointestinal History: Reports: Colon Polyp, GERD Genitourinary History: Reports: None [employer] OFFIC[employer] History: Reports: Musculoskeletal History: Reports: Arthritis, Osteoporosis Neurological History: Reports: Other (See Below) Other Neuro History: restless legs syndrome Psychiatric History: Reports: Anxiety, Depression Endocrine/Metabolic History: Reports: Diabetes, Type II, Hypothyroidism, Obesity/BMI 30+, Other (See Below) Other Endocrine/Metabolic History: states hypothyroidism in the past, no longer on thyroid medication Hematologic History: Reports: None Immunologic History: Reports: None Oncologic (Cancer) History: Reports: Other (See Below) Other Oncologic History: states skin cancer removed from face, type unknown Dermatologic History: Reports: None - Infectious Disease History Infectious Disease History: Reports: None - Past Surgical History Head Surgeries/Procedures: Reports: None HEENT Surgical History: Reports: Naso-Sinus Surgery Cardiovascular Surgical History: Reports: Coronary Artery Stent Respiratory Surgical History: Reports: None GI Surgical History: Reports: Appendectomy, Cholecystectomy, Colonoscopy Female Surgical History: Reports: Breast Reduction, Tubal Ligation Endocrine Surgical History: Reports: None Neurological Surgical History: Reports: None Musculoskeletal Surgical History: Reports: Carpal Tunnel Other Musculoskeletal Surgeries/Procedures:: hx [facility] Oncologic Surgical History: Reports: None Dermatological Surgical History: Reports: Skin Biopsy - SUBSTANCE USE Tobacco Use Status *Q: Former Tobacco User Tobacco Use Within Last Twelve Months: No - HOME MEDS Home Medications: Home Meds Armodafinil [Nuvigil] 250 mg PO DAILY 02/22/14 [History] Aspirin [Children's Aspirin] 81 mg PO BEDTIME 02/22/14 [History] Cholecalciferol (Vitamin D3) [Vitamin D3] 5,000 units PO DAILY 02/22/14 [His tory] Clopidogrel Bisulfate [Clopidogrel] 75 mg PO DAILY 02/22/14 [History] Cyanocobalamin (Vitamin B12) [Vitamin B12] 2,500 mcg PO BEDTIME 02/22/14 [History] Pramipexole Di-HCl [Pramipexole Dihydrochloride] 0.5 mg PO BEDTIME 02/22/14 [History] carvediloL [Carvedilol] 6.25 mg PO BID 02/22/14 [History] traMADol HCl [Ultram] 50 mg PO ASDIRECTED PRN 02/22/14 [History] Famotidine 40 mg PO DAILY 09/16/19 [History] Albuterol Sulfate [Albuterol Sulfate HFA] 1 - 2 puff INH ASDIRECTED PRN 03/13/21 [History] Baclofen 10 mg PO TID PRN 03/13/21 [History] Budesonide/Formoterol [Symbicort 160-4.5 MCG] 1 inh INH DAILY 03/13/21 [History] Denosumab [Prolia] 1 injection IM ASDIRECTED 03/13/21 [History] Dulaglutide [Trulicity] 1 injection SUBCUT WEEKLY 03/13/21 [History] Estrogens, Conjugated [Premarin Vaginal Crm] 1 applicful VAG ASDIRECTED 03/13/21 [History] Fenofibrate 160 mg PO BEDTIME 03/13/21 [History] Magnesium Oxide [Magnesium] 2 tab PO BEDTIME 03/13/21 [History] Nitroglycerin [Nitrostat] 0.4 mg SL ASDIRECTED PRN 03/13/21 [History] PARoxetine HCL [Paxil] 30 mg PO DAILY 03/13/21 [History] Potassium Gluconate [Potassium] 99 mg PO DAILY 03/13/21 [History] Simvastatin 40 mg PO DAILY 03/13/21 [History] - CURRENT (IN HOUSE) MEDS Current Meds: Current Medications Albuterol (Albuterol 0.083% 2.5 Mg/3 Ml Neb Soln) 2.5 mg NEB ONETIME PRN PRN Reason: Wheezing Droperidol (Droperidol 5 Mg/2 Ml Sdv) 0.625 mg IVPUSH ONETIME PRN PRN Reason: Nausea/Vomiting Fentanyl (Fentanyl 100 Mcg/2 Ml Sdv) 50 mcg IVPUSH Q5M PRN PRN Reason: Pain (mild 1-3) Hydromorphone HCl (Hydromorphone 1 Mg/Ml Syringe) 1 mg IVPUSH Q10M PRN PRN Reason: Pain (moderate 4-6) Acetaminophen 1,000 mg/ Premix 100 mls @ 400 mls/hr IV ONCALL ONE Stop: 03/18/21 08:35 Lactated Ringer's (Ringers, Lactated) 1,000 mls @ 125 mls/hr IV ASDIRECTED [facility] Metoclopramide HCl (Metoclopramide 10 Mg/2 Ml Sdv) 10 mg IVPUSH ONETIME PRN PRN Reason: Nausea/Vomiting Naloxone HCl (Naloxone 0.4 Mg/Ml Sdv) 0.1 mg IVPUSH ASDIRECTED PRN PRN Reason: Respiratory Depression Ondansetron HCl (Ondansetron 4 Mg/2 Ml Sdv) 4 mg IVPUSH ONETIME PRN PRN Reason: Nausea/Vomiting Pregabalin (Pregabalin 75 Mg Cap) 150 mg PO ONETIME ONE Stop: 03/18/21 08:22 Discontinued Medications Cefoxitin Sodium 2 gm/ Premix 50 mls @ 100 mls/hr IV ONETIME ONE Stop: 03/16/21 08:47
[~2021-03-18 07:59] MED LIST: Albuterol 0.083% 2.5 MG/3 ML Neb Soln NEB PRN; HYDROmorphone 1 MG/ML Syringe IVPUSH PRN; Metoclopramide 10 MG/2 ML SDV IVPUSH PRN; Morphine 2 MG/ML SYRINGE IVPUSH PRN; Naloxone 0.4 MG/ML SDV IVPUSH PRN; Ondansetron 4 MG/2 ML SDV IVPUSH PRN; cefOXitin 2 GM in Premix Bag 1 BAG IV ONE; fentaNYL 100 MCG/2 ML SDV IVPUSH PRN
[2021-03-18] MEDS ORDERED: Acetaminophen 1,000 MG in Premix Bag 1 BAG IV ONE (08:21)
[2021-03-18] MEDS ORDERED: Pregabalin 75 MG Cap PO ONE (08:21)
[2021-03-18] MEDS ORDERED: Lactated Ringers 1,000 ML IV SCH (08:30)
[2021-03-18] MEDS ORDERED: Scopolamine 1.5 MG Transdermal Patch ONE (08:37)
[2021-03-18] MEDS ORDERED: Bupivacaine 0.5% 10 ML SDV ONE (09:06)
[2021-03-18] MEDS ORDERED: Octyl 2-Cyanoacrylate 1 Tube ONE (09:06)
[2021-03-18] MEDS ORDERED: Ondansetron 4 MG/2 ML SDV ONE (09:55)
[2021-03-18] MEDS ORDERED: Dexamethasone 4 MG/ML 5 ML MDV ONE (09:55)
[2021-03-18] MEDS ORDERED: fentaNYL 250 MCG/5 ML SDV ONE (09:55)
[2021-03-18] MEDS ORDERED: Propofol 200 MG/20 ML SDV ONE (09:55)
[2021-03-18] MEDS ORDERED: Rocuronium Bromide 50 MG/5 ML Syringe ONE (09:55)
[2021-03-18] MEDS ORDERED: Glycopyrrolate 0.2 MG/ML SDV ONE (09:55)
[2021-03-18] MEDS ORDERED: Sodium Chloride 0.9% 20 ML ONE (09:56)
[2021-03-18] MEDS ORDERED: cefOXitin 100 ML ONE (09:56)
[2021-03-18] MEDS ORDERED: Lidocaine 2% Jelly 30 ML Tube ONE (09:56)
[2021-03-18] MEDS ORDERED: Sugammadex Sodium 200 MG/2 ML VIAL ONE (10:10)
--- NOTE | 2021-03-18 10:32 | PCM.OPNOTE ---
- General Post-Op/Procedure Note Date of Surgery/Procedure: 03/18/21 Operative Procedure(s): Repair of a supra-umblical hernia with mesh Findings: Supra-umbilical hernia dictation number [id number] Pre Op Diagnosis: Supra-umbilical hernia Post-Op Diagnosis: Supra-umbilical hernia Anesthesia Technique: General ET Tube Primary Surgeon: Dieter Pollock Pathology: none EBL in mLs: 5 Complications: None Condition: Good
--- NOTE | 2021-03-18 10:45 | PCM48HPAN ---
Post Anesthesia Note - EVALUATION WITHIN 48HRS OF ANESTHETIC Vital Signs in Normal Range: Yes Patient Participated in Evaluation: Yes Respiratory Function Stable: Yes Airway Patent: Yes Cardiovascular Function Stable: Yes Hydration Status Stable: Yes Pain Control Satisfactory: Yes Nausea and Vomiting Control Satisfactory: Yes Mental Status Recovered: Yes Vital Signs: Last Vital Signs Temp 97.5 F 03/18/21 10:27 Pulse 73 03/18/21 10:42 Resp 14 03/18/21 10:42 BP 127/66 03/18/21 10:42 Pulse Ox 98 03/18/21 10:42
--- NOTE | 2021-03-18 10:45 | PCM.POSTAN ---
POST ANESTHESIA ASSESSMENT - MENTAL STATUS Mental Status: Alert, Oriented - VITAL SIGNS Vital Signs: Last Vital Signs Temp 97.5 F 03/18/21 10:27 Pulse 73 03/18/21 10:42 Resp 14 03/18/21 10:42 BP 127/66 03/18/21 10:42 Pulse Ox 98 03/18/21 10:42 - RESPIRATORY Respiratory Status: Respiratory Rate WNL, Airway Patent, O2 Saturation Stable - CARDIOVASCULAR CV Status: Pulse Rate WNL, Blood Pressure Stable - GASTROINTESTINAL GI Status: No Symptoms - POST OP HYDRATION Hydration Status: Adequate & Stable
[2021-03-18 11:48] VITALS: BP 138/70; PULSE 68
--- NOTE | 2021-03-18 16:30 | OR ---
SURGEON: TATE ARELLANO MD DATE OF PROCEDURE: 03/18/2021 PREOPERATIVE DIAGNOSIS: Supraumbilical hernia. POSTOPERATIVE DIAGNOSIS: Supraumbilical hernia. PROCEDURE PERFORMED: Repair of supraumbilical hernia with mesh. ANESTHESIA: General. PRIMARY SURGEON: Tate Arellano MD ESTIMATED BLOOD LOSS: 5 mL. SPECIMEN: None. COMPLICATIONS: None. REASON FOR PROCEDURE: Patient is a pleasant 70-year-old female who has a periumbilical hernia that has been bothering her. She has had it for quite some time, but now it is starting to bother her. She had a CT scan that showed a supraumbilical hernia. I did go over with the patient risks, goals, and alternatives to repair. Risks included, but were not limited to bleeding, infection, mesh infection, recurrence, injury to underlying structures, adhesion, seroma, hematoma, and scar formation. Patient understands and wishes to proceed. OPERATIVE NARRATIVE: Patient was brought back to the OR. She was prepped and draped in usual sterile fashion. SCDs were placed. Anesthesia was provided by the Anesthesia team. Preoperative antibiotics were given. Time-out was performed. A small midline incision was made right above the umbilicus. This was carried down to the adipose and the hernia sac was carefully dissected and freed up. I did clear the fascia around the fascial defect. The hernia sac was then reduced and a small area cleared underneath the fascia for mesh placement. The hernia defect felt to be about 1.5 to 2 cm in size. I was just able to get my index finger in it. There was good hemostasis. Now, a medium-sized Bard Ventralex ST mesh was placed. It laid nice and flat underneath the fascia. It was secured in place with 2-0 Prolenes in all four quadrants. The extra mesh straps were then cut, and the fascial defect was completely closed with 0 Vicryl with use of a figure-eight stitch, it closed nice and easily without tension. Now, the rest of the local was injected into the fascia and subcutaneous tissue. The skin was then closed in two layers with 3-0 Vicryl and 4-0 Monocryl and Dermabond. At the end of the case, sponge and needle counts were correct. The patient was transferred to recovery room in stable condition. SOY / VIVIAN /[id number]
== END 2021-03-18 12:00 | disposition home or self-care (01) ==
LOC: MW.SDS 07:59
PROVIDERS: ATTEND Surgery
DX: K43.9 Ventral hernia without obstruction or gangrene (principal); F41.9 Anxiety disorder, unspecified; I25.10 Atherosclerotic heart disease of native coronary artery without angina pectoris; J44.9 Chronic obstructive pulmonary disease, unspecified; I10 Essential (primary) hypertension; G47.30 Sleep apnea, unspecified; E11.9 Type 2 diabetes mellitus without complications; E03.9 Hypothyroidism, unspecified; I25.2 Old myocardial infarction; E78.00 Pure hypercholesterolemia, unspecified; Z88.5 Allergy status to narcotic agent; Z88.2 Allergy status to sulfonamides; Z91.041 Radiographic dye allergy status; Z79.899 Other long term (current) drug therapy; Z79.84 Long term (current) use of oral hypoglycemic drugs; Z79.890 Hormone replacement therapy; Z90.49 Acquired absence of other specified parts of digestive tract; Z98.890 Other specified postprocedural states; Z87.891 Personal history of nicotine dependence; Z91.012 Allergy to eggs
CPT/HCPCS: 49560; A9270; J0131; J0694; J1100; J2405; J2704; J3010; J3490; J7120; 00750; 99100

== ENCOUNTER 2023-01-10 00:26 | Emergency (ER) | payer MEDICARE, OTHER ==
[2023-01-10] MEDS ORDERED: Albuterol/Ipratropium 3.0-0.5 MG/3 ML Neb Soln NEB ONE (00:33)
[2023-01-10] MEDS ORDERED: methylPREDNISolone Sodium Succinate 125 MG/2 ML SDV IVPUSH ONE (00:33)
[2023-01-10 00:51] LABS: BASE EXCESS VENOUS 3.2 (-2.0-3.0); BASOPHILS PERCENT AUTO 0.8 % (0.0-1.5); EOSINOPHILS ABSOLUTE AUTO 0.2 K/uL (0.0-0.7); EOSINOPHILS PERCENT AUTO 5.7 % (0.0-7.0); HEMATOCRIT 37.1 % (36.0-46.0); HEMOGLOBIN 11.8 g/dL (12.0-16.0); LYMPHOCYTES ABSOLUTE AUTO 1.4 K/uL (0.6-2.4); MEAN CORPUSCULAR HEMOGLOBIN 29.5 pg (27.0-32.0); MEAN CORPUSCULAR HGB CONC 31.8 g/dL (31.0-37.0); MEAN CORPUSCULAR VOLUME 92.8 fL (80.0-98.0); MONOCYTES ABSOLUTE AUTO 0.5 K/uL (0.0-0.8); MONOCYTES PERCENT AUTO 11.7 % (0.0-15.0); NEUTROPHILS ABSOLUTE AUTO 1.8 K/uL (1.4-5.7); NEUTROPHILS PERCENT AUTO 45.8 % (48.0-80.0); NRBC ABSOLUTE 0 K/uL; PH,VENOUS 7.4 (7.31-7.41); PLATELET COUNT,PLT 204 K/uL (150-400); WHITE BLOOD CELL COUNT,WBC 3.83 K/uL (4.0-11.0)
[2023-01-10 01:06] LABS: D-DIMER QUANTITATIVE 0.76 mg/L FEU (0.00-0.50); INR 0.96 (0.86-1.11); PTT,PARTIAL THROMBOPLSTIN TIME 22.9 SEC (23.9-30.7)
[2023-01-10 01:24] LABS: A/G RATIO 0.9 (0.9-1.6); ALBUMIN 3.4 g/dL (3.4-5.0); BILIRUBIN TOTAL 0.1 mg/dL (0.2-1.0); CALCIUM 9.3 mg/dL (8.5-10.1); CARBON DIOXIDE,CO2 27.1 mmol/L (21.0-32.0); CREATININE 1.2 mg/dL (0.6-1.0); EST CRCL DRUG DOSING (CG) 36.59 mL/min; POTASSIUM,K 3.9 mmol/L (3.5-5.1); PROTEIN TOTAL,TP 7.1 g/dL (6.4-8.2)
[2023-01-10 02:00] VITALS: BP 138/49; PULSE 64
== END 2023-01-10 01:59 | disposition home or self-care (01) ==
LOC: MW.ED 00:26
DX: J44.1 Chronic obstructive pulmonary disease with (acute) exacerbation (principal); I10 Essential (primary) hypertension; I25.10 Atherosclerotic heart disease of native coronary artery without angina pectoris; E78.00 Pure hypercholesterolemia, unspecified; I25.2 Old myocardial infarction; K21.9 Gastro-esophageal reflux disease without esophagitis; E11.9 Type 2 diabetes mellitus without complications; E03.9 Hypothyroidism, unspecified; E66.9 Obesity, unspecified; Z95.5 Presence of coronary angioplasty implant and graft; Z91.012 Allergy to eggs; Z91.041 Radiographic dye allergy status; Z79.82 Long term (current) use of aspirin; Z79.51 Long term (current) use of inhaled steroids; Z79.899 Other long term (current) drug therapy; Z20.822 Contact with and (suspected) exposure to COVID-19; Z68.28 Body mass index [BMI] 28.0-28.9, adult
CPT/HCPCS: 36415; 71045; 80053; 82803; 83735; 83880; 84484; 85025; 85379; 85610; 85730; 93005; 96374; 99285; J2930; U0002; 93010; 99284; J7620-GY

== ENCOUNTER 2024-02-17 09:33 | Day surgery (SDC) | payer MEDICARE ==
[2024-02-17] MEDS: Lactated Ringers 1,000 ML IV SCH (10:24)
[2024-02-17] MEDS ORDERED: propofoL 50 ML ONE (11:02)
[2024-02-17] MEDS ORDERED: fentaNYL 100 MCG/2 ML SDV ONE (11:12)
[2024-02-17 11:55] VITALS: PULSE 62
[2024-02-17 13:14] VITALS: BP 109/59
== END 2024-02-17 12:20 | disposition home or self-care (01) ==
LOC: MW.SDS 09:33
PROVIDERS: ATTEND Surgery
DX: Z12.11 Encounter for screening for malignant neoplasm of colon (principal); D12.6 Benign neoplasm of colon, unspecified; K64.8 Other hemorrhoids; K59.00 Constipation, unspecified; I25.10 Atherosclerotic heart disease of native coronary artery without angina pectoris; I10 Essential (primary) hypertension; G47.33 Obstructive sleep apnea (adult) (pediatric); E11.9 Type 2 diabetes mellitus without complications; E03.9 Hypothyroidism, unspecified; E66.9 Obesity, unspecified; Z88.5 Allergy status to narcotic agent; Z91.041 Radiographic dye allergy status; Z88.2 Allergy status to sulfonamides; Z79.82 Long term (current) use of aspirin; Z79.899 Other long term (current) drug therapy; Z79.84 Long term (current) use of oral hypoglycemic drugs; Z87.891 Personal history of nicotine dependence; Z79.890 Hormone replacement therapy; Z68.30 Body mass index [BMI] 30.0-30.9, adult
CPT/HCPCS: 45380; 82947; J2704; J3010; J7120; 00811; 88305; 99100